=== PATIENT | female | born 1985 | race Two or more races ===

== ENCOUNTER 2019-09-06 10:46 | Day surgery (SDC) | payer OTHER | END 2019-09-06 15:00 | disposition home or self-care (01) | LOC: AMB-ENDOS 10:46 | DX: K62.89 Other specified diseases of anus and rectum (principal); Z12.11 Encounter for screening for malignant neoplasm of colon ==

== ENCOUNTER 2019-12-19 09:03 | Inpatient (IN) | payer OTHER ==
[~2019-12-19] VITALS: Ht 154.9 cm; Wt 70.8 kg
[2019-12-24] MEDS ORDERED: AYGESTIN5 MG PO (12:57)
[2019-12-27] MEDS ORDERED: PANTOPRAZOLE SO40 MG (09:04)
[2019-12-27] MEDS ORDERED: GABAPENTIN100 M2 PO (09:04)
[2019-12-29] MEDS ORDERED: HYOSCYAMINE0.125 M1 SL (13:31)
[2019-12-29] MEDS ORDERED: OXYC1TAB9 PO (13:31)
== END 2019-12-29 16:05 | disposition home or self-care (01) | DRG 330 ==
LOC: O/R 12-26 05:55 → SURH 12-26 10:45
PROVIDERS: Obstetrics & Gynecology; ADMIT Surgery; ATTEND Surgery
PROC: 0UT9FZZ Resection of Uterus, Via Natural or Artificial Opening With Percutaneous Endoscopic Assistance (ICD-10-PCS; 2019-12-26)
PROC: 0UT7FZZ Resection of Bilateral Fallopian Tubes, Via Natural or Artificial Opening With Percutaneous Endoscopic Assistance (ICD-10-PCS; 2019-12-26)
PROC: 0UT2FZZ Resection of Bilateral Ovaries, Via Natural or Artificial Opening With Percutaneous Endoscopic Assistance (ICD-10-PCS; 2019-12-26)
PROC: 0DTN4ZZ Resection of Sigmoid Colon, Percutaneous Endoscopic Approach (ICD-10-PCS; principal; 2019-12-26 11:15)
PROC: 0DJD8ZZ Inspection of Lower Intestinal Tract, Via Natural or Artificial Opening Endoscopic (ICD-10-PCS; 2019-12-26 11:15)
DX: N80.5 Endometriosis of intestine (principal); K56.690 Other partial intestinal obstruction; K59.02 Outlet dysfunction constipation; N94.4 Primary dysmenorrhea; N80.0 Endometriosis of uterus; N80.1 Endometriosis of ovary; D25.1 Intramural leiomyoma of uterus; D25.0 Submucous leiomyoma of uterus; D25.2 Subserosal leiomyoma of uterus; N83.01 Follicular cyst of right ovary; N83.291 Other ovarian cyst, right side; N72 Inflammatory disease of cervix uteri; D26.1 Other benign neoplasm of corpus uteri; Z12.11 Encounter for screening for malignant neoplasm of colon; Z90.5 Acquired absence of kidney